=== PATIENT | female | born 1960 | race Caucasian/White ===

== ENCOUNTER 2023-12-06 10:35 | Emergency (ER) | payer SELFPAY ==
[2023-12-06 10:51] VITALS: BP 136/79; PULSE 95; RESP 16; TEMP 36.8; O2SAT 95; BMI 34.2
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
[2023-12-06 13:10] VITALS: BP 141/77; PULSE 84; RESP 18; O2SAT 98
== END 2023-12-06 13:15 | disposition home or self-care (01) ==
PROVIDERS: Emergency Provider Emergency Medicine
DX: S06.0X0A Concussion without loss of consciousness, initial encounter (principal); Y04.2XXA Assault by strike against or bumped into by another person, initial encounter
CPT/HCPCS: 99281; 99283